=== PATIENT | male | born 1975 | race Caucasian/White ===

== ENCOUNTER 2017-05-20 23:31 | Emergency (ER) | payer SELFPAY ==
[2017-05-20] MEDS ORDERED: Pantoprazole 40 MG Vial IVPUSH ONE (23:54)
--- NOTE | 2017-05-20 23:57 | EDM.PDOC ---
ED HPI GENERAL MEDICAL PROBLEM - General Chief Complaint: Gastrointestinal Problem Stated Complaint: ABDOMINAL PAIN Time Seen by Provider: 05/20/17 23:55 - History of Present Illness INITIAL COMMENTS - FREE TEXT/NARRATIVE: HISTORY AND PHYSICAL: History of present illness: Patient is a 41-year-old white male with history of gastroesophageal reflux disease who presents with concern of epigastric pains had this off and on 1 month he denies melena hematochezia chest pain shortness of breath or other concern Review of systems: As per history of present illness and below otherwise all systems reviewed and negative. Past medical history: As per history of present illness and as reviewed below otherwise noncontributory. Surgical history: As per history of present illness and as reviewed below otherwise noncontributory. Social history: No reported history of drug or alcohol abuse. Family history: As per history of present illness and as reviewed below otherwise noncontributory. Physical exam: HEENT: Atraumatic, normocephalic, pupils reactive, negative for conjunctival pallor or scleral icterus, mucous membranes moist, throat clear, neck supple, nontender, trachea midline. Lungs: Clear to auscultation, breath sounds equal bilaterally, chest nontender. Heart: S1S2, regular, negative for clicks, rubs, or JVD. Abdomen: Soft, nondistended, mild epigastric tenderness no rebound no guarding. Negative for masses or hepatosplenomegaly. Negative for costovertebral tenderness. Pelvis: Stable nontender. Genitourinary: Deferred. Rectal: Deferred. Extremities: Atraumatic, negative for cords or calf pain. Neurovascular unremarkable. Neuro: Awake, alert, oriented. Cranial nerves II through XII unremarkable. Cerebellum unremarkable. Motor and sensory unremarkable throughout. Exam nonfocal. Diagnostics: CBC CMP and lipase troponin PT/INR chest x-ray EKG Therapeutics: Normal saline 1 L bolus GI cocktail Protonix 80 mg IV Impression: #1 epigastric abdominal pain #2 history of gastroesophageal reflux disease Definitive disposition and diagnosis as appropriate pending reevaluation and review of above. abdominal Pain Score (Numeric/FACES): 10 - Related Data Allergies Allergy/AdvReac Type Severity Reaction Status Date / Time No Known Allergies Allergy Verified 05/20/17 23:44 Home Meds: Home Meds Heart Burn 05/20/17 [History] PARoxetine HCl [Paxil] 0 mg PO 05/20/17 [History] Past Medical History HEENT History: Reports: None Cardiovascular History: Reports: None Respiratory History: Reports: None Genitourinary History: Reports: None Musculoskeletal History: Reports: None Neurological History: Reports: None Psychiatric History: Reports: Depression Endocrine/Metabolic History: Reports: None - Infectious Disease History Infectious Disease History: Reports: Chicken Pox - Past Surgical History GI Surgical History: Reports: None Male Surgical History: Reports: None Social & Family History - Family History Family Medical History: Noncontributory - Tobacco Use Smoking Status *Q: Current Every Day Smoker Years of Tobacco use: 25 Packs/Tins Daily: 2 - Recreational Drug Use Recreational Drug Use: No ED ROS GENERAL - Review of Systems Review Of Systems: ROS reveals no pertinent complaints other than HPI. ED EXAM, GENERAL - Physical Exam Exam: See Below (See dictation) Course - Vital Signs Last Recorded V/S: Last Vital Signs Temp 36.2 C 05/20/17 23:47 Pulse 61 05/20/17 23:47 Resp 18 05/20/17 23:47 BP 125/86 05/20/17 23:47 Pulse Ox 97 05/21/17 00:16 - Orders/Labs/Meds Orders: Active Orders 24 hr Category Date Time Status Cardiac Monitoring [RC] . DIRECTED Care 05/20/17 23:55 Active EKG Documentation Completion [RC] STAT Care 05/20/17 23:55 Active Oxygen Therapy, ED [RC] ASDIRECTED Care 05/20/17 23:59 Active Abdomen Ltd [US] Stat Exams 05/21/17 00:56 Taken Chest 1V Frontal [CR] Stat Exams 05/20/17 23:56 Taken Sodium Chloride 0.9% [Saline Flush] Med 05/20/17 23:59 Active 10 ml FLUSH ASDIRECTED PRN Sodium Chloride 0.9% [Saline Flush] Med 05/20/17 23:59 Active 2.5 ml FLUSH ASDIRECTED PRN Saline Lock Insert [OM.PC] Stat Oth 05/20/17 23:59 Ordered Medication Orders Sodium Chloride (Saline Flush) 10 ml FLUSH ASDIRECTED PRN PRN Reason: Keep Vein Open Last Admin: 05/21/17 00:09 Dose: 10 ml Sodium Chloride (Saline Flush) 2.5 ml FLUSH ASDIRECTED PRN PRN Reason: Keep Vein Open Labs: Laboratory Tests 05/20/17 05/20/17 05/20/17 Range/Units 23:50 23:50 23:50 WBC 10.51 (4.0-11.0) K/uL RBC 4.87 (4.50-5.90) M/uL Hgb 15.4 (13.0-17.0) g/dL Hct 44.6 (38.0-50.0) % MCV 91.6 (80.0-98.0) fL MCH 31.6 (27.0-32.0) pg MCHC 34.5 (31.0-37.0) g/dL RDW Std Deviation 43.5 (28.0-62.0) fl RDW Coeff of Maude 13 (11.0-15.0) % Plt Count 308 (150-400) K/uL MPV 10.50 (7.40-12.00) fL Neut % (Auto) 61.7 (48.0-80.0) % Lymph % (Auto) 26.0 (16.0-40.0) % [place] % (Auto) 7.6 (0.0-15.0) % Eos % (Auto) 4.2 (0.0-7.0) % Baso % (Auto) 0.5 (0.0-1.5) % Neut # (Auto) 6.5 H (1.4-5.7) K/uL Lymph # (Auto) 2.7 H (0.6-2.4) K/uL [place] # (Auto) 0.8 (0.0-0.8) K/uL Eos # (Auto) 0.4 (0.0-0.7) K/uL Baso # (Auto) 0.1 (0.0-0.1) K/uL Nucleated RBC % 0.0 /100WBC Nucleated RBCs # 0 K/uL INR 0.96 (0.86-1.11) Sodium 139 (136-146) mmol/L Potassium 3.8 (3.5-5.1) mmol/L Chloride 106 (98-110) mmol/L Carbon Dioxide 23 (21-31) mmol/L BUN 11 (6.0-23.0) mg/dL Creatinine 1.0 (0.6-1.5) mg/dL Est Cr Clr Drug Dosing 91.81 mL/min Estimated GFR (MDRD) > 60.0 ml/min Glucose 107 (60-110) mg/dL Calcium 9.3 (8.8-10.8) mg/dL Total Bilirubin 0.2 (0.1-1.5) mg/dL AST 19 (5-40) IU/L ALT 24 (8-54) IU/L Alkaline Phosphatase 61 (40-150) Troponin I < 0.10 (0.0-0.29) NG/ML Total Protein 7.4 (6.0-8.0) g/dL Albumin 4.2 (3.5-5.0) g/dL Globulin 3.2 (2.0-3.5) g/dL Albumin/Globulin Ratio 1.3 (1.3-2.8) Meds: Medications Generic Name Dose Route Start Last Admin Trade Name Freq PRN Reason Stop Dose Admin Sodium Chloride 10 ml 05/20/17 23:59 05/21/17 00:09 Saline Flush FLUSH 10 ml ASDIRECTED PRN Administration Keep Vein Open Sodium Chloride 2.5 ml 05/20/17 23:59 Saline Flush FLUSH ASDIRECTED PRN Keep Vein Open Discontinued Medications Generic Name Dose Route Start Last Admin Trade Name Freq PRN Reason Stop Dose Admin Al Hydroxide/Mg Hydroxide 15 0 ml 05/21/17 00:01 05/21/17 00:08 ml/ Lidocaine HCl 5 ml PO 05/21/17 00:02 1 each ONETIME ONE Administration Hydromorphone HCl 1 mg 05/21/17 02:20 Dilaudid IVPUSH 05/21/17 02:21 ONETIME ONE Ondansetron HCl 4 mg 05/21/17 02:20 Zofran IVPUSH 05/21/17 02:21 ONETIME ONE Pantoprazole Sodium 80 mg 05/20/17 23:54 05/21/17 00:09 Protonix Iv IVPUSH 05/20/17 23:55 80 mg NOW ONE Administration Departure - Departure Time of Disposition: 23:56 Disposition: Home, Self-Care 01 Condition: Good Clinical Impression: Epigastric abdominal pain, GERD (gastroesophageal reflux disease), Cholelithiasis, Biliary colic - Discharge Information Referrals: Norby,Constance A, CNS [Primary Care Provider] - Forms: ED Department Discharge Additional Instructions: The following information is given to patients seen in the emergency department who are being discharged to home. This information is to outline your options for follow-up care. We provide all patients seen in our emergency department with a follow-up referral. The need for follow-up, as well as the timing and circumstances, are variable depending upon the specifics of your emergency department visit. If you don't have a primary care physician on staff, we will provide you with a referral. We always advise you to contact your personal physician following an emergency department visit to inform them of the circumstance of the visit and for follow-up with them and/or the need for any referrals to a consulting specialist. The emergency department will also refer you to a specialist when appropriate. This referral assures that you have the opportunity for followup care with a specialist. All of these measure are taken in an effort to provide you with optimal care, which includes your followup. Under all circumstances we always encourage you to contact your private physician who remains a resource for coordinating your care. When calling for followup care, please make the office aware that this follow-up is from your recent emergency room visit. If for any reason you are refused follow-up, please contact the [facility] emergency department at and asked to speak to the emergency department charge nurse. [facility] - General Surgery Professional Building [address] [place] [address], [address] [place] [address] Call clinic above at 8:30 AM for same day appointment per Dr. Acevedo hydrocodone as prescribed and return as needed as discussed - My Orders Last 24 Hours: My Active Orders 05/20/17 23:55 Cardiac Monitoring [RC] . DIRECTED EKG Documentation Completion [RC] STAT 05/20/17 23:56 Chest 1V Frontal [CR] Stat 05/20/17 23:59 Oxygen Therapy, ED [RC] ASDIRECTED Sodium Chloride 0.9% [Saline Flush] 10 ml FLUSH ASDIRECTED PRN Sodium Chloride 0.9% [Saline Flush] 2.5 ml FLUSH ASDIRECTED PRN Saline Lock Insert [OM.PC] Stat 05/21/17 00:56 Abdomen Ltd [US] Stat - Assessment/Plan Last 24 Hours: My Active Orders 05/20/17 23:55 Cardiac Monitoring [RC] . DIRECTED EKG Documentation Completion [RC] STAT 05/20/17 23:56 Chest 1V Frontal [CR] Stat 05/20/17 23:59 Oxygen Therapy, ED [RC] ASDIRECTED Sodium Chloride 0.9% [Saline Flush] 10 ml FLUSH ASDIRECTED PRN Sodium Chloride 0.9% [Saline Flush] 2.5 ml FLUSH ASDIRECTED PRN Saline Lock Insert [OM.PC] Stat 05/21/17 00:56 Abdomen Ltd [US] Stat
[2017-05-20] MEDS ORDERED: Sodium Chloride 0.9% 2.5 ML Syringe FLUSH PRN (23:59)
[2017-05-20] MEDS ORDERED: Sodium Chloride 0.9% 10 ML Syringe FLUSH PRN (23:59)
[2017-05-21] MEDS ORDERED: Alum Hydrox/Mag Hydrox/Simeth 15 ML, Lidocaine 2% 5 ML PO ONE ×2 (00:01)
[2017-05-21 00:30] LABS: CHLORIDE,CL 106 mmol/L (98-110); SODIUM,NA 139 mmol/L (136-146)
[2017-05-21] MEDS ORDERED: HYDROmorphone 2 MG/ML Syringe IVPUSH ONE (02:20)
[2017-05-21] MEDS ORDERED: Ondansetron 4 MG/2 ML SDV IVPUSH ONE (02:20)
--- NOTE | 2017-05-21 13:36 | CR ---
EXAM DATE: 05/20/17 PATIENT'S AGE: 41 Patient: KASHIF ALVES Facility: [place], [place] Site . Site : 1975 Study: XRay Chest [id number]/27/2017 12:41:01 AM Ordering Physician: Arely Webb Final Report: INDICATION: Upper abdominal pain TECHNIQUE: Chest radiograph 1 view COMPARISON: 01/13/17 FINDINGS: Mediastinum: The cardiac silhouette is normal in appearance and size. Mediastinum is within normal limits. Lungs: Both lungs are unremarkable in appearance. No sign of pleural effusion. No pneumothorax is seen. Bones and soft tissue: No significant findings. IMPRESSION: 1. No acute cardiopulmonary disease seen. Dictated by: Harman Lewis MD @ 05/21/2017 00:41:56 (Electronic Signature) Report Signed by Proxy. [facility] HOSPITALMatias
--- NOTE | 2017-05-21 13:38 | US ---
EXAM DATE: 05/20/17 PATIENT'S AGE: 41 Patient: KASHIF ALVES Facility: [place], [place] Site . Site : 1975 Study: US Abdomen [id number]/27/2017 1:43:12 AM Ordering Physician: Arely Webb Final Report: INDICATION: Epigastric pain TECHNIQUE: Ultrasound abdomen limited. Sonographic images of the right upper quadrant were obtained using hicks-scale and color Doppler images. COMPARISON: None FINDINGS: Liver: Normal in size and echotexture. No masses. No intrahepatic biliary dilatation. Gallbladder: 7 millimeter gallstone in the neck of the gallbladder. Normal wall thickness. No pericholecystic fluid. Positive sonographic Rocha`s sign. Common bile duct: 1 mm. Pancreas: Normal. Right kidney: 10.3 cm. Normal echotexture and cortex. No masses, stones, or hydronephrosis. IMPRESSION: 7 millimeter gallstone in the neck of the gallbladder. Sonographic Rocha`s sign. The gallbladder is otherwise unremarkable in appearance. Normal common bile duct. If cholecystitis is clinically suspected, nuclear medicine HIDA scan may be helpful to better characterize. Dictated by Russell Sainz MD @ 05/21/2017 1:46:56 AM Dictated by: Russell Sainz MD @ 05/21/2017 01:47:06 (Electronic Signature) Report Signed by Proxy. LUCIEN
== END 2017-05-21 02:55 | disposition home or self-care (01) ==
LOC: MW.ED 23:31
DX: K80.70 Calculus of gallbladder and bile duct without cholecystitis without obstruction (principal); K21.9 Gastro-esophageal reflux disease without esophagitis; F17.210 Nicotine dependence, cigarettes, uncomplicated
CPT/HCPCS: 36415; 71010; 76705; 80053; 84484; 85025; 85610; 93005; 96374; 96375; 99285; A9270; C9113; J1170; J2405; 99284

== ENCOUNTER 2017-05-22 09:55 | Day surgery (SDC) | payer SELFPAY ==
[~2017-05-22 09:55] MED LIST: Lactated Ringers 1,000 ML IV SCH; Lidocaine 2% 5 ML SDV ONE; Midazolam 1 MG/ML 2 ML SDV ONE; Propofol 200 MG/20 ML SDV ONE; Rocuronium 10 MG/ML 10 ML Syringe ONE; Succinylcholine/Normal Saline 200 MG/10 ML Syringe ONE; ceFAZolin 2 GM in Premix Bag 1 BAG IV ONE; fentaNYL 100 MCG/2 ML SDV ONE
[2017-05-22] MEDS ORDERED: Bupivacaine 25%/EPINEPHrine/PF 30 ML ONE (09:57)
[2017-05-22] MEDS ORDERED: Famotidine 20 MG/2 ML SDV IVPUSH ONE (10:23)
--- NOTE | 2017-05-22 10:25 | PCM.PREANE ---
Preanesthetic Assessment - Anesthesia/Transfusion/Family Hx Anesthesia History: Prior Anesthesia Without Reaction Transfusion History: No Prior Transfusion(s) - Review of Systems General: No Symptoms Pulmonary: No Symptoms Cardiovascular: No Symptoms Gastrointestinal: No Symptoms Neurological: No Symptoms Other: Reports: None - Physical Assessment Height: 5 ft 7 in Weight: 83.007 kg ASA Class: 2 Mental Status: Alert & Oriented x3 Airway Class: Mallampati = 2 Dentition: Reports: Normal Dentition Thyro-Mental Finger Breadths: 3 Mouth Opening Finger Breadths: 3 ROM/Head Extension: Full Lungs: Clear to Auscultation, Normal Respiratory Effort Cardiovascular: Regular Rate, Regular Rhythm - Allergies Allergies/Adverse Reactions: Allergies Allergy/AdvReac Type Severity Reaction Status Date / Time No Known Allergies Allergy Verified 05/21/17 14:07 - Acknowledgements Anesthesia Type Planned: General Anesthesia (RSI, active GERD, Pepcid IV pre-op) Pt an Appropriate Candidate for the Planned Anesthesia: Yes Alternatives and Risks of Anesthesia Discussed w Pt/Guardian: Yes Pt/Guardian Understands and Agrees with Anesthesia Plan: Yes PreAnesthesia Questionnaire HEENT History: Reports: Hard of Hearing Other HEENT History: has hearing aides but doesn't wear them Cardiovascular History: Reports: None Respiratory History: Reports: Sleep Apnea Other Respiratory History: has a CPAP but does not use it Gastrointestinal History: Reports: GERD (Was seen in the ER 05/20/17 for severe GERD) Genitourinary History: Reports: None Musculoskeletal History: Reports: None Neurological History: Reports: None Psychiatric History: Reports: Depression Endocrine/Metabolic History: Reports: None Hematologic History: Reports: None Immunologic History: Reports: None Oncologic (Cancer) History: Reports: None Dermatologic History: Reports: None - Infectious Disease History Infectious Disease History: Reports: Chicken Pox - Past Surgical History HEENT Surgical History: Reports: Adenoidectomy, Myringotomy w Tube(s) - SUBSTANCE USE Smoking Status *Q: Current Every Day Smoker Tobacco Use Within Last Twelve Months: Cigarettes Recreational Drug Use History: No - HOME MEDS Home Medications: Home Meds PARoxetine HCl [Paxil] 20 mg PO DAILY 05/20/17 [History] Omeprazole 20 mg PO BID 05/21/17 [History] - CURRENT (IN HOUSE) MEDS Current Meds: Current Medications Lactated Ringer's (Ringers, Lactated) 1,000 mls @ 125 mls/hr IV ASDIRECTED ODILIA Discontinued Medications Fentanyl (Sublimaze) Confirm Administered Dose 100 mcg .ROUTE .STK-MED ONE Stop: 05/22/17 08:06 Cefazolin Sodium/Dextrose 2 gm (/ Premix) 50 mls @ 100 mls/hr IV ONETIME ONE Stop: 05/22/17 05:29 Bupivacaine HCl/Epinephrine Bitart (Sensorc Mpf 0.25%-Epi [id number]) Confirm Administered Dose 30 mls @ as directed .ROUTE .STK-MED ONE Stop: 05/22/17 09:58 Lidocaine (Xylocaine-Mpf 2%) Confirm Administered Dose 5 ml .ROUTE .STK-MED ONE Stop: 05/22/17 08:06 Midazolam HCl (Versed 1 Mg/Ml) Confirm Administered Dose 2 mg .ROUTE .STK-MED ONE Stop: 05/22/17 08:06 Propofol (Diprivan 20 Ml) Confirm Administered Dose 200 mg .ROUTE .STK-MED ONE Stop: 05/22/17 08:06 Rocuronium [place] (Zemuron) Confirm Administered Dose 100 mg .ROUTE .STK-MED ONE Stop: 05/22/17 08:06 Succinylcholine Chloride (Succinylcholine In Ns Pf) Confirm Administered Dose 200 mg .ROUTE .STK-MED ONE Stop: 05/22/17 08:06
[2017-05-22] MEDS ORDERED: Scopolamine 1.5 MG Transdermal Patch TRDERM PRN (10:47)
[2017-05-22] MEDS ORDERED: ceFAZolin 1 GM Vial ONE (12:21)
[2017-05-22] MEDS ORDERED: Sodium Chloride 0.9% 20 ML ONE (12:21)
[2017-05-22] MEDS ORDERED: Acetaminophen/oxyCODONE 325-10 MG Tab PO ONE (12:28)
[2017-05-22] MEDS ORDERED: Atropine 0.4 MG/ML SDV ONE (13:05)
[2017-05-22] MEDS ORDERED: Neostigmine Methylsulfate 1 MG/ML 5 ML Syringe ONE (13:17)
[2017-05-22] MEDS ORDERED: Ketorolac 30 MG/ML SDV ONE (13:17)
[2017-05-22] MEDS ORDERED: Ondansetron 4 MG/2 ML SDV ONE (13:17)
[2017-05-22] MEDS ORDERED: fentaNYL 100 MCG/2 ML SDV IVPUSH PRN (13:30)
[2017-05-22] MEDS ORDERED: Octyl 2-Cyanoacrylate 1 Tube ONE (13:44)
[2017-05-22] MEDS ORDERED: fentaNYL 100 MCG/2 ML SDV ONE (13:44)
--- NOTE | 2017-05-22 14:05 | PCM.OPNOTE ---
- General Post-Op/Procedure Note Date of Surgery/Procedure: 05/22/17 Operative Procedure(s): lap shaun Findings: gb was yellow and green cw chronic cholecystitis; wall was mildly thickened; [id number] Pre Op Diagnosis: acute and chronic cholecystitis Post-Op Diagnosis: Same Anesthesia Technique: General ET Tube Primary Surgeon: Srini Acevedo Pathology: sent Complications: None Condition: Good
--- NOTE | 2017-05-22 14:44 | PCM.POSTAN ---
POST ANESTHESIA ASSESSMENT - MENTAL STATUS Mental Status: Alert, Oriented - RESPIRATORY Respiratory Status: Respiratory Rate WNL, Airway Patent, O2 Saturation Stable - CARDIOVASCULAR CV Status: Pulse Rate WNL, Blood Pressure Stable - GASTROINTESTINAL GI Status: No Symptoms - PAIN Pain Score: 6 - POST OP HYDRATION Hydration Status: Adequate & Stable
--- NOTE | 2017-05-22 16:21 | OR ---
SURGEON: Srini Acevedo MD DATE OF PROCEDURE: 05/22/2017 PREOPERATIVE DIAGNOSIS: Acute on chronic cholecystitis. POSTOPERATIVE DIAGNOSIS: Acute on chronic cholecystitis. PROCEDURE PERFORMED: Laparoscopic cholecystectomy. COMPLICATIONS: None. INTRAOPERATIVE FINDINGS: 1. Gallbladder wall was yellow and green consistent with acute on chronic cholecystitis. 2. Wall is mildly thickened. DESCRIPTION OF PROCEDURE: The patient was taken to the operating room and placed in the supine position. After the intubation of general endotracheal anesthesia, the patient's abdomen was prepped and draped in the usual sterile fashion. Using [email or web address], a 12 mm trocar was placed supraumbilically and then followed with pneumoperitoneum. A 5 mm trocar was placed in the epigastrium and two 5 mm trocars placed in the right upper quadrant. The placement of the last three trocars was done under direct video supervision. Upon gaining entrance to the abdominal cavity, an extensive examination was then performed. The gallbladder was located and identified and retracted to the dome of the liver at the triangle of Calot. The cystic duct was clipped three more times and then using the endoscopic clip, was transected with placement of the endoscopic clip and transection was performed with care, ensuring the posterior prong of the instruments were clearly visualized prior to exercising the procedure. The gallbladder was dissected using electrocautery out of the liver bed and then removed using endoscopic bag through the umbilical site. The gallbladder was removed en bloc and there was no bile spillage and this was then followed with extensive irrigation until the bile was clear from blood and bile. The trocars were then removed under direct video supervision. The 12 mm umbilical site was then closed with deep stitches using 0 Vicryl followed with proximal stitches using 3-0 Vicryl and Dermabond. The other three trocar sites were closed with 3-0 Vicryl followed with approximation of skin with Dermabond. The patient was then awakened and extubated and transferred to the recovery room in hemodynamically stable condition. At the conclusion of the surgery, before closing the abdominal wound, instrument count and sponge count were done and were correct. The patient tolerated the procedure well and there were no intraoperative complications. Dr. Acevedo was present through the whole procedure. Just before surgery, a timeout was called. The patient was identified and procedure identified and procedure started. Intraoperative findings as dictated above. VALDEMAR / ZAID /[id number]
--- NOTE | 2017-05-22 17:10 | PCM48HPAN ---
Post Anesthesia Note - EVALUATION WITHIN 48HRS OF ANESTHETIC Vital Signs in Normal Range: Yes Patient Participated in Evaluation: Yes Respiratory Function Stable: Yes Airway Patent: Yes Cardiovascular Function Stable: Yes Hydration Status Stable: Yes Pain Control Satisfactory: Yes Nausea and Vomiting Control Satisfactory: Yes Mental Status Recovered: Yes
== END 2017-05-22 15:54 | disposition home or self-care (01) ==
LOC: MW.SDS 09:55
PROVIDERS: ATTEND Surgery
DX: K80.12 Calculus of gallbladder with acute and chronic cholecystitis without obstruction (principal); F41.8 Other specified anxiety disorders; K29.70 Gastritis, unspecified, without bleeding; K21.9 Gastro-esophageal reflux disease without esophagitis; F17.210 Nicotine dependence, cigarettes, uncomplicated; R59.0 Localized enlarged lymph nodes; Z79.899 Other long term (current) drug therapy; Z90.89 Acquired absence of other organs
CPT/HCPCS: 47562; A9270; J0461; J0690; J1885; J2250; J2405; J3010; J7120; 00790; 88304; J2704

== ENCOUNTER 2017-05-27 11:43 | Emergency (ER) | payer SELFPAY ==
--- NOTE | 2017-05-27 12:02 | EDM.PDOC ---
ED HPI GENERAL MEDICAL PROBLEM - General Chief Complaint: Skin Complaint Stated Complaint: JOCELYNE STOLL BUSTED OPEN Time Seen by Provider: 05/27/17 12:00 Source of Information: Reports: Patient History Limitations: Reports: No Limitations - History of Present Illness INITIAL COMMENTS - FREE TEXT/NARRATIVE: History of present illness: [41-year-old male presenting with abdominal pain status post laparoscopic cholecystectomy. Patient indicates he feels like his belly button has ruptured and that he has not had any relief since the surgery.] Review of systems: As per history of present illness and below otherwise all systems reviewed and negative. Past medical history: As per history of present illness and as reviewed below otherwise noncontributory. Surgical history: As per history of present illness and as reviewed below otherwise noncontributory. Social history: No reported history of drug or alcohol abuse. Family history: As per history of present illness and as reviewed below otherwise noncontributory. Physical exam: HEENT: Atraumatic, normocephalic, pupils reactive, negative for conjunctival pallor or scleral icterus, mucous membranes moist, throat clear, neck supple, nontender, trachea midline. Lungs: Clear to auscultation, breath sounds equal bilaterally, chest nontender. Heart: S1S2, regular, negative for clicks, rubs, or JVD. Abdomen: Soft, protuberant abdomen is diffusely tender more specifically immediately over the incisional areas. Skin has some ecchymosis consistent with residual surgical healing, umbilicus and lateral incision lines are sealed without active drainage. Negative for masses or hepatosplenomegaly. Negative for costovertebral tenderness. Pelvis: Stable nontender. Genitourinary: Deferred. Rectal: Deferred. Extremities: Atraumatic, negative for cords or calf pain. Neurovascular unremarkable. Neuro: Awake, alert, oriented. Cranial nerves II through XII unremarkable. Cerebellum unremarkable. Motor and sensory unremarkable throughout. Exam nonfocal. CBC CMP within normal limits CT of abdomen negative for acute changes Diagnostics: [CBC, CMP, CT of abdomen] Therapeutics: [Dilaudid, Zofran, Benadryl] Impression: [Postsurgical abdominal pain] Plan: [Follow-up with surgeon as already directed] Definitive disposition and diagnosis as appropriate pending reevaluation and review of above. belly button Pain Score (Numeric/FACES): 2 - Related Data Allergies Allergy/AdvReac Type Severity Reaction Status Date / Time No Known Allergies Allergy Verified 05/27/17 11:53 Home Meds: Home Meds PARoxetine HCl [Paxil] 20 mg PO DAILY 05/20/17 [History] Omeprazole 20 mg PO BID 05/21/17 [History] oxyCODONE ER [OxyCONTIN] 10 mg PO Q6HR 05/27/17 [History] Past Medical History HEENT History: Reports: Hard of Hearing Other HEENT History: has hearing aides but doesn't wear them Cardiovascular History: Reports: None Respiratory History: Reports: Sleep Apnea Other Respiratory History: has a CPAP but does not use it Gastrointestinal History: Reports: GERD Genitourinary History: Reports: None Musculoskeletal History: Reports: None Neurological History: Reports: None Psychiatric History: Reports: Depression Endocrine/Metabolic History: Reports: None Hematologic History: Reports: None Immunologic History: Reports: None Oncologic (Cancer) History: Reports: None Dermatologic History: Reports: None - Infectious Disease History Infectious Disease History: Reports: Chicken Pox - Past Surgical History HEENT Surgical History: Reports: Adenoidectomy, Myringotomy w Tube(s) GI Surgical History: Reports: None, Cholecystectomy Male Surgical History: Reports: None Social & Family History - Family History Family Medical History: Noncontributory - Tobacco Use Smoking Status *Q: Current Every Day Smoker Years of Tobacco use: 32 Packs/Tins Daily: 1.5 - Caffeine Use Caffeine Use: Reports: Soda - Recreational Drug Use Recreational Drug Use: No Drug Use in Last 12 Months: No ED ROS GENERAL - Review of Systems Review Of Systems: See Below (History of present illness) ED EXAM, SKIN/RASH Exam: See Below (History of present illness) Course - Vital Signs Last Recorded V/S: Last Vital Signs Temp 36.0 C 05/27/17 11:54 Pulse 77 05/27/17 11:54 Resp 18 05/27/17 11:54 BP 115/78 05/27/17 11:54 Pulse Ox 95 05/27/17 11:54 - Orders/Labs/Meds Orders: Active Orders 24 hr Category Date Time Status HYDROmorphone [Dilaudid] Med 05/27/17 14:29 Once 2 mg IVPUSH ONETIME ONE Ondansetron [Zofran] Med 01/02/18 14:29 Once 4 mg IVPUSH ONETIME ONE diphenhydrAMINE [Benadryl] Med 05/27/17 14:29 Once 25 mg IVPUSH ONETIME ONE Labs: Laboratory Tests 05/27/17 05/27/17 Range/Units 12:18 12:18 WBC 8.92 (4.0-11.0) K/uL RBC 4.52 (4.50-5.90) M/uL Hgb 14.1 (13.0-17.0) g/dL Hct 40.8 (38.0-50.0) % MCV 90.3 (80.0-98.0) fL MCH 31.2 (27.0-32.0) pg MCHC 34.6 (31.0-37.0) g/dL RDW Std Deviation 42.3 (28.0-62.0) fl RDW Coeff of Maude 13 (11.0-15.0) % Plt Count 297 (150-400) K/uL MPV 10.00 (7.40-12.00) fL Add Manual Diff YES Neutrophils % (Manual) 62 (48.0-80.0) % Band Neutrophils % 1 % Lymphocytes % (Manual) 29 (16.0-40.0) % Monocytes % (Manual) 6 (0.0-15.0) % Eosinophils % (Manual) 2 (0.0-7.0) % Nucleated RBC % 0.0 /100WBC Absolute Seg Neuts 5.5 (1.4-5.7) Band Neutrophils # 0.1 Lymphocytes # (Manual) 2.6 H (0.6-2.4) Monocytes # (Manual) 0.5 (0.0-0.8) Eosinophils # (Manual) 0.2 (0.0-0.7) Nucleated RBCs # 0 K/uL Sodium 140 (136-146) mmol/L Potassium 4.3 (3.5-5.1) mmol/L Chloride 105 (98-110) mmol/L Carbon Dioxide 26 (21-31) mmol/L BUN 12 (6.0-23.0) mg/dL Creatinine 0.9 (0.6-1.5) mg/dL Est Cr Clr Drug Dosing 102.01 mL/min Estimated GFR (MDRD) > 60.0 ml/min Glucose 87 (60-110) mg/dL Calcium 9.7 (8.8-10.8) mg/dL Total Bilirubin 0.3 (0.1-1.5) mg/dL AST 29 (5-40) IU/L ALT 43 (8-54) IU/L Alkaline Phosphatase 115 (40-150) Total Protein 7.4 (6.0-8.0) g/dL Albumin 3.9 (3.5-5.0) g/dL Globulin 3.5 (2.0-3.5) g/dL Albumin/Globulin Ratio 1.1 L (1.3-2.8) Meds: Medications Discontinued Medications Generic Name Dose Route Start Last Admin Trade Name Freq PRN Reason Stop Dose Admin Iopamidol 100 ml 05/27/17 13:06 05/27/17 13:07 Isovue Multipack-370 (76%) IVPUSH 05/27/17 13:07 100 ml ONETIME STA Administration Departure - Departure Time of Disposition: 14:31 Disposition: Home, Self-Care 01 Condition: Good Clinical Impression: Postoperative abdominal pain - Discharge Information Referrals: PCP,None [Primary Care Provider] - Forms: ED Department Discharge Additional Instructions: The following information is given to patients seen in the emergency department who are being discharged to home. This information is to outline your options for follow-up care. We provide all patients seen in our emergency department with a follow-up referral. The need for follow-up, as well as the timing and circumstances, are variable depending upon the specifics of your emergency department visit. If you don't have a primary care physician on staff, we will provide you with a referral. We always advise you to contact your personal physician following an emergency department visit to inform them of the circumstance of the visit and for follow-up with them and/or the need for any referrals to a consulting specialist. The emergency department will also refer you to a specialist when appropriate. This referral assures that you have the opportunity for follow-up care with a specialist. All of these measure are taken in an effort to provide you with optimal care, which includes your follow-up. Under all circumstances we always encourage you to contact your private physician who remains a resource for coordinating your care. When calling for follow-up care, please make the office aware that this follow-up is from your recent emergency room visit. If for any reason you are refused follow-up, please contact the [facility] Emergency Department at and asked to speak to the emergency department charge nurse. Take medication as directed Take it easy for the next 2-3 days Follow-up with your surgeon as already scheduled Return to ED as needed as discussed - My Orders Last 24 Hours: My Active Orders 05/27/17 14:29 HYDROmorphone [Dilaudid] 2 mg IVPUSH ONETIME ONE Ondansetron [Zofran] 4 mg IVPUSH ONETIME ONE diphenhydrAMINE [Benadryl] 25 mg IVPUSH ONETIME ONE - Assessment/Plan Last 24 Hours: My Active Orders 05/27/17 14:29 HYDROmorphone [Dilaudid] 2 mg IVPUSH ONETIME ONE Ondansetron [Zofran] 4 mg IVPUSH ONETIME ONE diphenhydrAMINE [Benadryl] 25 mg IVPUSH ONETIME ONE
[2017-05-27 12:55] LABS: CHLORIDE,CL 105 mmol/L (98-110); SODIUM,NA 140 mmol/L (136-146)
[2017-05-27] MEDS ORDERED: Iopamidol 755 MG/ML 500 ML Multipack Bottle IVPUSH STA (13:06)
--- NOTE | 2017-05-27 14:17 | CT ---
CT of the abdomen and pelvis with contrast. HISTORY: Pain TECHNIQUE: Axial CT images were obtained of the abdomen and pelvis following administration of 100 mL of Isovue-370 in the right antecubital fossa without complication. Coronal and sagittal reconstructi ons obtained. FINDINGS: The lung bases are clear, no pleural effusion. The liver, spleen, adrenal glands, and pancreas appear normal. There is a small amount of fluid and s tranding within the gallbladder fossa status post cholecystectomy. The kidneys enhance and function symmetrically without evidence of obstructive uropathy. The large and small bowel are normal in caliber. No focal pericolonic inflammation or stranding. The appendix is normal. The urinary bladder is normal. No free pelvic fluid or pelvic lymphadenopathy. No suspicious osseous abnormalities identified. IMPRESSION: 1. Likely postsurgical changes and fluid within the gallbladder fossa. 2. Otherwise no acute findings within the abdomen or pelvis.
[2017-05-27] MEDS ORDERED: HYDROmorphone 2 MG/ML Syringe IVPUSH ONE (14:29)
[2017-05-27] MEDS ORDERED: diphenhydrAMINE 50 MG/ML SDV IVPUSH ONE (14:29)
[2017-05-27] MEDS ORDERED: Ondansetron 4 MG/2 ML SDV IVPUSH ONE (14:29)
== END 2017-05-27 15:45 | disposition home or self-care (01) ==
LOC: MW.ED 11:43
DX: K91.870 Postprocedural hematoma of a digestive system organ or structure following a digestive system procedure (principal); F17.210 Nicotine dependence, cigarettes, uncomplicated; Z79.899 Other long term (current) drug therapy
CPT/HCPCS: 36415; 74177; 80053; 85025; 96374; 96375; 99284; J1170; J1200; J2405; Q9967